=== PATIENT | male | born 1990 | race Caucasian/White ===

== ENCOUNTER 2016-07-22 22:21 | Emergency (ER) | payer OTHER ==
[~2016-07-22] VITALS: Ht 182.9 cm; Wt 114.0 kg
[2016-07-22 22:24] VITALS: TEMP 37.2; Ht 182.9 cm; Wt 114.0 kg
[2016-07-22] MEDS ORDERED: KETOROLAC TROMETHAMINE 60 MG/2 ML VIAL IM STA (22:43)
[2016-07-22] MEDS ORDERED: DEXAMETHASONE SOD INJ 10 MG/ML VIAL IM ONE (22:45)
[2016-07-22] MEDS ORDERED: OXYCODONE/ACETAMINOPHEN 5-325 TAB PO ONE (22:45)
[2016-07-23] MEDS ORDERED: OXYC-57 PO (00:15)
[2016-07-23] MEDS ORDERED: CYCL10TA6 PO (00:15)
[2016-07-23] MEDS ORDERED: PRED50TA PO (00:15)
[2016-07-23] MEDS ORDERED: PERCOCET HOME PACK PO ONE (00:15)
[2016-07-23] MEDS ORDERED: FLEXERIL HOME PACK 10 MG VIAL PO ONE (00:15)
--- NOTE | 2016-07-23 00:17 | EMERGENCY ROOM VISIT NOTE ---
ED Visit Note First contact with patient: 22:27 Chief Complaint: Back Spasms History of Present Illness: Patient is a 26-year-old male who presents to the emergency department today for evaluation of his low back pain and back spasms. He reports that he developed lower back pain yesterday. He reports that he was lifting throughout the day and developed symptoms shortly after. His symptoms progressively worsened throughout the day. He reports pain and spasm with range of motion activities. He denies any numbness or tingling into the distal extremity's. The patient rates his current discomfort as an 8/10. He is tried nothing for his pain to this point. He denies any loss of control bowel/bladder saddle anesthesia. There is been no fevers or chills. There is been no abdominal pain, nausea, vomiting, hematuria, or dysuria. He denies any sick history of back pain or back injuries otherwise. Medications: Reviewed and discussed with the patient. Allergies: No known allergies. PMH: No pertinent past medical history. SHx: Patient is a 26-year-old male who lives at home with family. ROS: All pertinent positive and negative review of systems are appropriately documented in the History of Present Illness. Physical Exam: VITAL SIGNS - Vital signs and nursing notes were reviewed. GENERAL - 26-year-old male appearing his stated age and in noticeable discomfort throughout the exam. NECK - FROM of the cervical spine. ABDOMEN - Abdominal contour obese without pulsations or visible masses. BS normoactive all four quadrants. No tenderness, palpable masses, hepatosplenomegaly, or ascites noted. MUSCULOSKELETAL - ROM of the lumbar spine region was limited secondary to patient discomfort. Pt was laying on the exam table. Pt made guarded movements when asked to change position. No step-off deformities were palpated down the thoracolumbar spines. Moderate Tenderness to Palpation experienced at the level of the lower lumbar paraspinal muscle distribution. No reproducible tenderness to palpation across the iliac spine. NEUROLOGIC - REFLEXES: +3/4 patellar reflexes B/L. SENSORY: Spinothalamic tract was found to be intact with ability to discriminate sharp versus dull sensation at the level of hip joint down do the great toe. No sensory defects of the dorsal column were appreciated utilizing light touch for evaluation. CEREBELLAR: Pt able to perform rapid alternating movements of the feet. EXTREMITIES - Range of Motion - No tremors, ticks, or fasciculations of the lower extremities noticed during inspection. FROM of the lower extremities. No clonus noted with PROM of the lower extremities bilaterally. Pt able to perform straight leg raises B/L without any difficulty. Sid's test (ANGELICA test) was unremarkable for focal Sacroiliac Dysfunction. Hip scouring produced no pain. Pt had +5/5 strength appreciated bilaterally in the lower extremities against examiner's resistance. VASCULAR - Capillary refill of the great toe was brisk. No mottling or blanching of the extremities present. +3/5 dorsalis pedis pulses palpated bilaterally. IMAGING: LUMBAR SPINE 5 VIEWS CLINICAL HISTORY: Low back pain. FINDINGS: 5 views of the lumbar spine are obtained. No prior studies are available for comparison at the time of dictation. The skeletal structures are well mineralized. There is no radiographic evidence of fracture or malalignment. Vertebral body height and alignment are maintained. The transverse and spinous processes are intact. There is no evidence of spondylolysis. The intervertebral disc spaces are well-maintained. The visualized bony pelvis appears intact. There is a nonobstructed abdominal bowel gas pattern. IMPRESSION: Unremarkable radiographic evaluation of the lumbosacral spine. ED Course: Patient was seen and evaluate by myself. Patient was treated with 1 Percocet, 60 mg Toradol, 10 mg Decadron. X-ray lumbar spine was obtained. Imaging results as above. Imaging results reviewed with the patient who acknowledges understanding. The patient feels somewhat better at this time. The patient was instructed to follow-up with his primary care provider from today's visit. He was educated on worrisome symptoms for return visit to the emergency department. Patient discharged home in good condition with his mother driving. In the evaluation and treatment of this patient the following differential diagnoses were considered: Cauda equina syndrome, discitis, HNP, sciatica, epidural abscess, psoas abscess, musculoskeletal strain, lumbar fracture, lumbar dislocation, lumbar subluxation, spondylolisthesis, spondylosis, or compression fracture. Given the patient's presentation and exam findings, I did elect to perform the above-mentioned workup. The patient resents today with atraumatic lumbar pain and spasm. He has reproducible her spinal musculature tenderness to palpation with active spasm. He was treated with pain medication as well as anti- inflammatories. He felt much better after this. X-ray is unremarkable. He has no worrisome exam findings or symptomatology for acute compressive etiologies at this point. The patient will follow closely with his primary care provider from today's visit. He will return to the emergency department setting of any changing or worsening symptoms. Patient discharged home in good condition. Impression: Low Back Pain - Musculoskeletal Strain Discharge Instructions: You have been treated in the Emergency Department for Back Pain. You have received pain medicine in the emergency department which impairs your ability to operate a vehicle. It is illegal for you to drive after receiving these medicines. You have been prescribed Percocet to be used for pain control. This is a narcotic medication. You cannot drive or consume alcohol while on this medicine. This medicine should only be used for pain that cannot be controlled with [id number]-pzphlhr pain medicines. You have been prescribed Flexeril (cyclobenzaprine) 1-2 tabs orally, three times per day. Do NOT exceed 30 mg (6 tabs) per day. Take your first dose at bedtime as it can make you drowsy. Always take all medications as prescribed. You have been prescribed Prednisone 50 mg to be taken orally once a day for the next 4 days. This is an anti-inflammatory medicine to be used to help minimize your symptoms. You should take the COMPLETE course of the medication. For pain control, you can use the following wzyr-kye-euoppjc medicines (if >12 yo): - Regular strength (325mg/tab) Tylenol (acetaminophen) 2 tabs every 4-6 hours as needed. Do not exceed 12 tablets in a 24 hour period. Avoid taking more than 4 grams (4000 mg) of Tylenol per day. This includes any other sources of acetaminophen you may take on a regular basis. - Regular strength (200 mg/tab) Advil (ibuprofen) 1-2 tabs every 4-6 hours as needed. Do not exceed a dose of 3200 mg per day. If this is an acute injury, ice can be applied to the area of pain for the first 3 days to help decrease pain and inflammation. After the first 3 days, a heating pad can be used over the area for continued soothing relief. You should schedule a follow-up appointment in 2-3 days with your Primary Care Provider for further evaluation and treatment of your back pain. Return to the Emergency Department if your current symptoms worsen despite treatment course outlined above, or if you develop any of the following symptoms : intractable pain despite aforementioned treatment course, loss of control of your bowel or bladder, numbness or tingling in your groin, or development of a fever. Current/Historical Medications Scheduled Cyclobenzaprine Hcl (Flexeril), 10 MG PO TID Prednisone (Prednisone), 50 MG PO DAILY Scheduled PRN Oxycodone/Acetaminophen 5MG/325MG (Percocet 5MG/325MG), 1-2 TABS PO Q6 PRN for Pain Allergies Coded Allergies: No Known Allergies (Unverified , 06/29/15) Vital Signs Date Time Temp Pulse Resp B/P Pulse Ox O2 Delivery O2 Flow Rate FiO2 07/23/16 00:28 91 20 111/71 96 07/22/16 23:34 93 20 132/79 95 Room Air 07/22/16 22:24 37.2 111 16 124/72 96 Room Air Medications Administered Medications (Trade) Dose Ordered Sig/Dex Route Start Time Stop Time Status Last Admin Dose Admin Oxycodone/ Acetaminophen (Percocet 5-325mg Tab) 1 tab NOW ONCE PO 07/22/16 22:45 07/22/16 22:46 DC 07/22/16 22:49 1 TAB Ketorolac Tromethamine (Toradol Inj) 60 mg NOW STAT IM 07/22/16 22:43 07/22/16 22:45 DC 07/22/16 22:49 60 MG Dexamethasone Sodium Phosphate (Decadron Inj) 10 mg NOW ONCE IM 07/22/16 22:45 07/22/16 22:46 DC 07/22/16 22:49 10 MG Oxycodone/ Acetaminophen (Percocet 5/ 325MG Home Pack) 1 homepack UD ONCE PO 07/23/16 00:15 07/23/16 00:16 DC 07/23/16 00:25 1 HOMEPACK Cyclobenzaprine HCl (FLEXERIL 10MG Home Pack) 1 homepack UD ONCE PO 07/23/16 00:15 07/23/16 00:16 DC 07/23/16 00:25 1 HOMEPACK Departure Information Impression Primary Impression: Back pain Additional Impression: Musculoskeletal back pain Dispostion Home / Self-Care Condition GOOD Prescriptions Prednisone (Prednisone) 50 Mg Tab 50 MG PO DAILY for 4 Days, #4 TAB Prov: Armani Gray, REGINA 07/23/16 Cyclobenzaprine Hcl (FLEXERIL) 10 Mg Tab 10 MG PO TID for 3 Days, #9 TAB Prov: Armani Gray PA-C 07/23/16 Oxycodone/Acetaminophen 5MG/325MG (PERCOCET 5MG/325MG) Tab 1-2 TABS PO Q6 Y for Pain, #16 TAB For Initial Treatment Prov: Aramni Gray PA-C 07/23/16 Referrals Peter Mcconnell M.D. (PCP) Patient Instructions Back Pain - [facility], My [facility] Additional Instructions You have been treated in the Emergency Department for Back Pain. You have received pain medicine in the emergency department which impairs your ability to operate a vehicle. It is illegal for you to drive after receiving these medicines. You have been prescribed Percocet to be used for pain control. This is a narcotic medication. You cannot drive or consume alcohol while on this medicine. This medicine should only be used for pain that cannot be controlled with gsrr-zje-jtrxkms pain medicines. You have been prescribed Flexeril (cyclobenzaprine) 1-2 tabs orally, three times per day. Do NOT exceed 30 mg (6 tabs) per day. Take your first dose at bedtime as it can make you drowsy. Always take all medications as prescribed. You have been prescribed Prednisone 50 mg to be taken orally once a day for the next 4 days. This is an anti-inflammatory medicine to be used to help minimize your symptoms. You should take the COMPLETE course of the medication. For pain control, you can use the following hquf-nku-dfuiehg medicines (if >12 yo): - Regular strength (325mg/tab) Tylenol (acetaminophen) 2 tabs every 4-6 hours as needed. Do not exceed 12 tablets in a 24 hour period. Avoid taking more than 4 grams (4000 mg) of Tylenol per day. This includes any other sources of acetaminophen you may take on a regular basis. - Regular strength (200 mg/tab) Advil (ibuprofen) 1-2 tabs every 4-6 hours as needed. Do not exceed a dose of 3200 mg per day. If this is an acute injury, ice can be applied to the area of pain for the first 3 days to help decrease pain and inflammation. After the first 3 days, a heating pad can be used over the area for continued soothing relief. You should schedule a follow-up appointment in 2-3 days with your Primary Care Provider for further evaluation and treatment of your back pain. Return to the Emergency Department if your current symptoms worsen despite treatment course outlined above, or if you develop any of the following symptoms : intractable pain despite aforementioned treatment course, loss of control of your bowel or bladder, numbness or tingling in your groin, or development of a fever. Problem Qualifiers Primary Impression: Back pain Back pain location: low back pain Chronicity: acute Back pain laterality: bilateral Sciatica presence: without sciatica Qualified Codes: M54.5 - Low back pain
[2016-07-23 00:28] VITALS: BP 111/71; PULSE 91; O2SAT 96
--- NOTE | 2016-07-23 07:25 | DIAGNOSTIC IMAGING REPORT ---
LUMBAR SPINE 5 VIEWS CLINICAL HISTORY: Low back pain. FINDINGS: 5 views of the lumbar spine are obtained. No prior studies are available for comparison at the time of dictation. The skeletal structures are well mineralized. There is no radiographic evidence of fracture or malalignment. Vertebral body height and alignment are maintained. The transverse and spinous processes are intact. There is no evidence of spondylolysis. The intervertebral disc spaces are well-maintained. The visualized bony pelvis appears intact. There is a nonobstructed abdominal bowel gas pattern. IMPRESSION: Unremarkable radiographic evaluation of the lumbosacral spine. Electronically signed by: Erasmo Sage M.D. 07/23/2016 7:23 AM Dictated Date/Time: 07/23/2016 7:22 AM
== END 2016-07-23 00:28 | disposition home or self-care (01) ==
LOC: C.EDB 22:22 → C.EDC 07-23 00:28
DX: M54.5 Low back pain (principal); M79.1 Myalgia